=== PATIENT | female | born 1995 | race Caucasian/White ===

== ENCOUNTER 2016-11-01 19:56 | Emergency (ER) | payer SELFPAY ==
[2016-11-01] MEDS ORDERED: EMLA CREAM 5GM (LIDOCAINE/PRILOCAINE) As Ordered ONE (21:47)
[2016-11-01] MEDS ORDERED: LIDOCAINE 2% W/EPIN INJ 20ML **PRES FREE As Ordered ONE (22:17)
[2016-11-01] MEDS ORDERED: NORCO 5/325MG TABLET (BULK) As Ordered ONE (22:39)
--- NOTE | 2016-11-01 22:55 | EDDOCDS ---
Physician Documentation [facility] Name: Sruthi Goodwin Age: 21 yrs Sex: Female : 1995 Arrival Date: 11/01/2016 Time: 19:56 Bed I9 / Private [facility] Disposition: 11/01 22:41 Critical Care: Critical care not applicable. le Disposition: 11/01/16 22:40 Discharged to Home/Self Care. Impression: Contusion of right foot, Laceration without foreign body, right foot - dorsum. - Condition is Stable. - Discharge Instructions: Foot Contusion, Crutch Use, Laceration Care, Adult. - Medication Reconciliation, Work Release Form - 5 day, Local Pharmacy Hours, [place] form. - [facility]; When: Tomorrow; Reason: Recheck today's complaints, Continuance of care. - Problem is new. - Symptoms have improved. - Notes: Return to the ED for any further concerns Historical: - Allergies: no known allergies; - Home Meds: 1. none - PMHx: none; - PSHx: none; - Social history: Smoking status: Patient states was never smoker of tobacco. No barriers to communication noted, The patient speaks fluent Maltese. - Family history: Not pertinent. - : The pt / caregiver states he / she is not on anticoagulants. Home medication list is obtained from the patient. - Exposure Risk Screening:: None identified. 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 (152.40 cm) (R); 22:50 BP 104 / 63; Pulse 82; Resp 18; Temp 99.6; Pulse Ox 96% ; Pain 0/10; cjh 19:58 Body Mass Index 23.24 (53.98 kg, 152.40 cm) dd6 MDM: 21:15 LMX 4 Plus Kit 4 % 1 applic Topical once ordered. le 21:15 Foot, Complete Ordered. EDMS 22:15 Lidocaine-Epinephrine 2 %-1:100,000 10 ml Infiltration once; to bedside ordered. le 22:35 HYDROcodone-acetaminophen 4 pack- 5 mg-325 mg 1 packets PO Per package directions; le Dispense with patient. 1 po q4h prn for pain ordered. 22:35 Crutches ordered. le Administered Medications: 22:05 Drug: LMX 4 Plus Kit 4 % 1 applic {Note: medication applied per orders to right foot.} [facility] Route: Topical; Site: right thigh; 22:32 Drug: Lidocaine-Epinephrine 2 %-1:100,000 10 ml {Note: obtained for provider to [facility] administer.} Route: Infiltration; 22:44 Drug: HYDROcodone-acetaminophen 4 pack- 1 packets [hydrocodone 5 mg-acetaminophen 325 cjh mg tablet (1 tabs)] {Co-Signature: rs3 (Mireya Mabry RN).} Route: PO; Signatures: Dispatcher [employer] EDNena Donahue, BRIDAL SALES CONSULTANT Ceci Benjamin RN RN [facility] Lilly Mi RN RN ms18 Mireya Mabry RN rs3 MTDD
--- NOTE | 2016-11-01 22:56 | EDDOCDS ---
Nurse's Notes [facility] Name: Sruthi Goodwin Age: 21 yrs Sex: Female : 1995 Arrival Date: 11/01/2016 Time: 19:56 Bed I9 / [facility] Diagnosis: Contusion of right foot;Laceration without foreign body, right foot-dorsum Presentation: 11/01 20:12 Presenting complaint: Patient states: that she dropped a 35 lb weight on her foot ms18 tonight. Adult Sepsis Screening: The patient does not have new or worsening altered mentation. Patient's respiratory rate is less than 22. Systolic blood pressure is greater than 100. Patient has a qSOFA score of 0- Negative Sepsis Screen. Suicide/Homicide risk assessment- the patient denies having any suicidal and/or homicidal ideations and does not present with any other emotional, behavioral or mental health complaints. 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 Transition of care: patient was not received from another setting of care. 20:12 Acuity: POOL Level 4 ms18 20:12 Method Of Arrival: Walkin/Carried/Asstd ms18 Triage Assessment: 20:13 General: Appears in no apparent distress, comfortable, well nourished, well groomed, ms18 Behavior is appropriate for age, cooperative. Pain: Location: right foot Pain currently is 8 out of 10 on a pain scale. HIV screening NA for this visit Offered previously. Neurological: Level of Consciousness is awake, alert, obeys commands, Oriented to person, place, time. Respiratory: No deficits noted. Derm: Skin is pink, warm & dry. Derm: Skin has skin tears on to the top of pt's R foot. Bleeding controlled. Musculoskeletal: Range of motion pt states that she can't wigger her R great toe at this time. 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 none - PMHx: none; - PSHx: none; - Social history: Smoking status: Patient states was never smoker of tobacco. No barriers to communication noted, The patient speaks fluent Tajik. - Family history: Not pertinent. - : The pt / caregiver states he / she is not on anticoagulants. Home medication list is obtained from the patient. - Exposure Risk Screening:: None identified. Screenin:07 Screening information is obtained from the patient. Fall risk: No risks identified. [facility] Assistance ADL's: requires no assistance with activities of daily living. Abuse/DV Screen: The patient / caregiver reports he/she is: not in a situation that causes fear, pain or injury. Nutritional screening: No deficits noted. Advance Directives: There is no active DNR order. home support is adequate. Assessment: 22:07 General: Appears in no apparent distress, uncomfortable, Behavior is appropriate for [facility] age, cooperative. Pain: Location: right foot Pain currently is 10 out of 10 on a pain scale. Respiratory: Airway is patent Respiratory effort is even, unlabored, Respiratory pattern is regular, symmetrical. Musculoskeletal: Range of motion limited in right ankle and right foot. 22:11 General: returned from Xray, awaiting results. [facility] 22:50 General: reviewed discharge instructions with patient, encouraged and answered [facility] questions, patient declines offer of further assistance, denies additional needs. Crutch training, fitting, and return demonstration completed. Vital Signs: 19:58 BP 120 / 66; Pulse 67; Resp 18 S; Temp 96.7(O); Pulse Ox 100% on R/A; Weight 53.98 kg dd6 (R); Height 60 in. (152.40 cm) (R); 22:50 BP 104 / 63; Pulse 82; Resp 18; Temp 99.6; Pulse Ox 96% ; Pain 0/10; [facility] 19:58 Body Mass Index 23.24 (53.98 kg, 152.40 cm) dd6 Vitals: 19:58 Log In Time: November 01, 2016 at 19:56. dd6 ED Course: 19:57 Patient visited by Donald Donohue, LEROY. dd6 19:57 [facility], Patricia Siegel is Private Physician. dd6 19:57 Patient moved to Waiting dd6 19:59 Patient moved to Pre RCE dd6 20:13 Triage Initiated ms18 21:04 [facility] L[facility] F[facility] le 21:04 Patient moved to I9 / jmb 21:08 Patient visited by Nena López FNP. le 21:08 Patient visited by Rene, Nena, SOCK LINING EXAMINER. le 21:53 Patient moved to Radiology asha 22:07 The patient / caregiver is instructed regarding the plan of care and ED course. [facility] 22:07 No IV's were initiated during this patient's visit. No procedures done that require [facility] assistance. 22:11 Patient moved to I asha 22:23 Patient visited by Mireya Mabry RN. rs3 22:39 [facility], Patricia Siegel is Referral Physician. le Administered Medications: 22:05 Drug: LMX 4 Plus Kit 4 % 1 applic {Note: medication applied per orders to right foot.} [facility] Route: Topical; Site: right thigh; 22:32 Drug: Lidocaine-Epinephrine 2 %-1:100,000 10 ml {Note: obtained for provider to [facility] administer.} Route: Infiltration; 22:44 Drug: HYDROcodone-acetaminophen 4 pack- 1 packets [hydrocodone 5 mg-acetaminophen 325 cjh mg tablet (1 tabs)] {Co-Signature: rs3 (Mireya Mabry RN).} Route: PO; Order Results: There are currently no results for this order. Outcome: 22:40 Discharge ordered by Provider. le 22:50 Discharge Assessment: Patient awake, alert and oriented x 3. No cognitive and/or [facility] functional deficits noted. Patient verbalized understanding of disposition instructions. patient administered narcotics - yes. Pt provided with safe discharge. The following High Risk Discharge criteria are identified: None. Discharged to home via wheelchair, with crutches, with significant other. Condition: good Condition: stable Condition: improved. Discharge instructions given to patient, Instructed on discharge instructions, follow up and referral plans. medication usage, no driving heavy equipment, wound care, Rest, Ice, Compression and Elevation. no drinking with medication, Demonstrated understanding of instructions, medications, Prescriptions given X 1, Work note provided to patient. No special radiology studies were completed. Property :Personal belongings accompany Pt. 22:54 Patient left the ED. [facility] Signatures: Wilfredo Carrillo Lisa, SOCK LINING EXAMINER SOCK LINING EXAMINER Donald Duque, WORKFORCE MANAGER WORKFORCE MANAGER dd6 Mireya Mabry RN RN rs3 Ceci Grey RN RN [facility] Quintin Velasco RN RN jmb Smith, Mallory, RN RN ms18 Mireya Mabry RN rs3 [facility]
--- NOTE | 2016-11-02 01:08 | REP ---
Clinical: Trauma with pain directed to the first metatarsal . Technique: AP, lateral, bilateral oblique views right foot . Findings: The osseous structures and joint spaces are intact and normal. There is no evidence for acute fracture or dislocation. Surrounding soft tissues are unremarkable. No subcutaneous emphysema or radiodense foreign body. Impression: Normal examination. No acute fracture or dislocation. Signed by Ceferino Staley MD 11/02/2016 01:00 A
--- NOTE | 2016-11-03 23:56 | EDDOCDS ---
Nurse's Notes [facility] Name: Sruthi Goodwin Age: 21 yrs Sex: Female : 1995 Arrival Date: 11/01/2016 Time: 19:56 Bed I9 / [facility] Diagnosis: Contusion of right foot;Laceration without foreign body, right foot-dorsum Presentation: 11/01 20:12 Presenting complaint: Patient states: that she dropped a 35 lb weight on her foot ms18 tonight. Adult Sepsis Screening: The patient does not have new or worsening altered mentation. Patient's respiratory rate is less than 22. Systolic blood pressure is greater than 100. Patient has a qSOFA score of 0- Negative Sepsis Screen. Suicide/Homicide risk assessment- the patient denies having any suicidal and/or homicidal ideations and does not present with any other emotional, behavioral or mental health complaints. 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 Transition of care: patient was not received from another setting of care. 20:12 Acuity: POOL Level 4 ms18 20:12 Method Of Arrival: Walkin/Carried/Asstd ms18 Triage Assessment: 20:13 General: Appears in no apparent distress, comfortable, well nourished, well groomed, ms18 Behavior is appropriate for age, cooperative. Pain: Location: right foot Pain currently is 8 out of 10 on a pain scale. HIV screening NA for this visit Offered previously. Neurological: Level of Consciousness is awake, alert, obeys commands, Oriented to person, place, time. Respiratory: No deficits noted. Derm: Skin is pink, warm & dry. Derm: Skin has skin tears on to the top of pt's R foot. Bleeding controlled. Musculoskeletal: Range of motion pt states that she can't wigger her R great toe at this time. 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 none - PMHx: none; - PSHx: none; - Social history: Smoking status: Patient states was never smoker of tobacco. No barriers to communication noted, The patient speaks fluent Bhutanese. - Family history: Not pertinent. - : The pt / caregiver states he / she is not on anticoagulants. Home medication list is obtained from the patient. - Exposure Risk Screening:: None identified. Screenin:07 Screening information is obtained from the patient. Fall risk: No risks identified. [facility] Assistance ADL's: requires no assistance with activities of daily living. Abuse/DV Screen: The patient / caregiver reports he/she is: not in a situation that causes fear, pain or injury. Nutritional screening: No deficits noted. Advance Directives: There is no active DNR order. home support is adequate. Assessment: 22:07 General: Appears in no apparent distress, uncomfortable, Behavior is appropriate for [facility] age, cooperative. Pain: Location: right foot Pain currently is 10 out of 10 on a pain scale. Respiratory: Airway is patent Respiratory effort is even, unlabored, Respiratory pattern is regular, symmetrical. Musculoskeletal: Range of motion limited in right ankle and right foot. 22:11 General: returned from Xray, awaiting results. [facility] 22:50 General: reviewed discharge instructions with patient, encouraged and answered [facility] questions, patient declines offer of further assistance, denies additional needs. Crutch training, fitting, and return demonstration completed. Vital Signs: 19:58 BP 120 / 66; Pulse 67; Resp 18 S; Temp 96.7(O); Pulse Ox 100% on R/A; Weight 53.98 kg dd6 (R); Height 60 in. (152.40 cm) (R); 22:50 BP 104 / 63; Pulse 82; Resp 18; Temp 99.6; Pulse Ox 96% ; Pain 0/10; [facility] 19:58 Body Mass Index 23.24 (53.98 kg, 152.40 cm) dd6 Vitals: 19:58 Log In Time: November 01, 2016 at 19:56. dd6 ED Course: 19:57 Patient visited by Donald Donohue, LEROY. dd6 19:57 [facility], [facility] Siegel is Private Physician. dd6 19:57 Patient moved to Waiting dd6 19:59 Patient moved to Pre RCE dd6 20:13 Triage Initiated ms18 21:04 Nena López FNP is [facility] le 21:04 Patient moved to I9 / jmb 21:08 Patient visited by Nena López FNP. le 21:08 Patient visited by Rene, Nena, POWER LINEMAN TECHNICIAN. le 21:53 Patient moved to Radiology asha 22:07 The patient / caregiver is instructed regarding the plan of care and ED course. [facility] 22:07 No IV's were initiated during this patient's visit. No procedures done that require [facility] assistance. 22:11 Patient moved to I asha 22:23 Patient visited by Mireya Mabry,MIKEY. rs3 22:39 [facility], Patricia Siegel is Referral Physician. le 11/02 01:43 Foot, Complete Returned. EDMS 11:54 T-Sheet-- Draft Copy was scanned into [employer] and attached to record. gb Administered Medications: 11/01 22:05 Drug: LMX 4 Plus Kit 4 % 1 applic {Note: medication applied per orders to right foot.} [facility] Route: Topical; Site: right thigh; 22:32 Drug: Lidocaine-Epinephrine 2 %-1:100,000 10 ml {Note: obtained for provider to [facility] administer.} Route: Infiltration; 22:44 Drug: HYDROcodone-acetaminophen 4 pack- 1 packets [hydrocodone 5 mg-acetaminophen 325 cjh mg tablet (1 tabs)] {Co-Signature: rs3 (Mireya Mabry RN).} Route: PO; Order Results: Radiology Order: Foot, Complete Test: Foot, Complete REASON FOR EXAMINATION: 1st metatarsal;Trauma; Clinical: Trauma with pain directed to the first metatarsal .; ; Technique: AP, lateral, bilateral oblique views right foot .; ; Findings: The osseous structures and joint spaces are intact and normal. There; is no evidence for acute fracture or dislocation. Surrounding soft tissues are; unremarkable. No subcutaneous emphysema or radiodense foreign body.; ; Impression:; Normal examination. No acute fracture or dislocation.; ; ; Signed by; Ceferino Staley MD 11/02/2016 01:00 A; Outcome: 22:40 Discharge ordered by Provider. le 22:50 Discharge Assessment: Patient awake, alert and oriented x 3. No cognitive and/or [facility] functional deficits noted. Patient verbalized understanding of disposition instructions. patient administered narcotics - yes. Pt provided with safe discharge. The following High Risk Discharge criteria are identified: None. Discharged to home via wheelchair, with crutches, with significant other. Condition: good Condition: stable Condition: improved. Discharge instructions given to patient, Instructed on discharge instructions, follow up and referral plans. medication usage, no driving heavy equipment, wound care, Rest, Ice, Compression and Elevation. no drinking with medication, Demonstrated understanding of instructions, medications, Prescriptions given X 1, Work note provided to patient. No special radiology studies were completed. Property :Personal belongings accompany Pt. 22:54 Patient left the ED. [facility] Signatures: Dispatcher [employer] EDMS Wilfredo Carrillo Gloria, Reg Reg gb Nena López, POWER LINEMAN TECHNICIAN POWER LINEMAN TECHNICIAN Donald Duque, PHYSICS INSTRUCTOR PHYSICS INSTRUCTOR dd6 Mireya Mabry RN RN rs3 Ceci Grey RN RN [facility] Quintin Velasco RN RN jmb Smith, Mallory, RN RN ms18 Mireya Mabry RN rs3 Chart Complete MTDD
--- NOTE | 2016-11-03 23:56 | EDDOCDS ---
Physician Documentation [facility] Name: Sruthi Goodwin Age: 21 yrs Sex: Female : 1995 Arrival Date: 11/01/2016 Time: 19:56 Bed I9 / Private [facility] Disposition: 11/01 22:41 Critical Care: Critical care not applicable. le Disposition: 11/01/16 22:40 Discharged to Home/Self Care. Impression: Contusion of right foot, Laceration without foreign body, right foot - dorsum. - Condition is Stable. - Discharge Instructions: Foot Contusion, Crutch Use, Laceration Care, Adult. - Medication Reconciliation, Work Release Form - 5 day, Local Pharmacy Hours, [place] form. - [facility]; When: Tomorrow; Reason: Recheck today's complaints, Continuance of care. - Problem is new. - Symptoms have improved. - Notes: Return to the ED for any further concerns Historical: - Allergies: no known allergies; - Home Meds: 1. none - PMHx: none; - PSHx: none; - Social history: Smoking status: Patient states was never smoker of tobacco. No barriers to communication noted, The patient speaks fluent Zambian. - Family history: Not pertinent. - : The pt / caregiver states he / she is not on anticoagulants. Home medication list is obtained from the patient. - Exposure Risk Screening:: None identified. 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 (152.40 cm) (R); 22:50 BP 104 / 63; Pulse 82; Resp 18; Temp 99.6; Pulse Ox 96% ; Pain 0/10; cjh 19:58 Body Mass Index 23.24 (53.98 kg, 152.40 cm) dd6 MDM: 21:15 LMX 4 Plus Kit 4 % 1 applic Topical once ordered. le 21:15 Foot, Complete Ordered. EDMS 22:15 Lidocaine-Epinephrine 2 %-1:100,000 10 ml Infiltration once; to bedside ordered. le 22:35 HYDROcodone-acetaminophen 4 pack- 5 mg-325 mg 1 packets PO Per package directions; le Dispense with patient. 1 po q4h prn for pain ordered. 22:35 Crutches ordered. le 11/02 11:54 T-Sheet-- Draft Copy was scanned into [employer] and attached to record. Administered Medications: 11/01 22:05 Drug: LMX 4 Plus Kit 4 % 1 applic {Note: medication applied per orders to right foot.} [facility] Route: Topical; Site: right thigh; 22:32 Drug: Lidocaine-Epinephrine 2 %-1:100,000 10 ml {Note: obtained for provider to [facility] administer.} Route: Infiltration; 22:44 Drug: HYDROcodone-acetaminophen 4 pack- 1 packets [hydrocodone 5 mg-acetaminophen 325 cjh mg tablet (1 tabs)] {Co-Signature: rs3 (Mireya Mabry RN).} Route: PO; Signatures: Dispatcher [employer] EDMS Tila Gamez, Reg Reg gb Nena López, GAMING COMMISSIONER GAMING COMMISSIONER Ceci FernandesRN RN [facility] Lilly Mi RN RN ms18 Mireya Mabry RN rs3 The chart was reviewed and I authenticate all verbal orders and agree with the evaluation and treatment provided.Attachments: 11/02 11:54 T-Sheet-- Draft Copy Chart Complete MTDD
--- NOTE | 2016-11-03 23:56 | EDDOCDS ---
Physician Documentation [facility] Name: Sruthi Goodwin Age: 21 yrs Sex: Female : 1995 Arrival Date: 11/01/2016 Time: 19:56 Bed I9 / Private [facility] Disposition: 11/01 22:41 Critical Care: Critical care not applicable. le Disposition: 11/01/16 22:40 Discharged to Home/Self Care. Impression: Contusion of right foot, Laceration without foreign body, right foot - dorsum. - Condition is Stable. - Discharge Instructions: Foot Contusion, Crutch Use, Laceration Care, Adult. - Medication Reconciliation, Work Release Form - 5 day, Local Pharmacy Hours, [place] form. - [facility]; When: Tomorrow; Reason: Recheck today's complaints, Continuance of care. - Problem is new. - Symptoms have improved. - Notes: Return to the ED for any further concerns Historical: - Allergies: no known allergies; - Home Meds: 1. none - PMHx: none; - PSHx: none; - Social history: Smoking status: Patient states was never smoker of tobacco. No barriers to communication noted, The patient speaks fluent Omani. - Family history: Not pertinent. - : The pt / caregiver states he / she is not on anticoagulants. Home medication list is obtained from the patient. - Exposure Risk Screening:: None identified. 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 (152.40 cm) (R); 22:50 BP 104 / 63; Pulse 82; Resp 18; Temp 99.6; Pulse Ox 96% ; Pain 0/10; cjh 19:58 Body Mass Index 23.24 (53.98 kg, 152.40 cm) dd6 MDM: 21:15 LMX 4 Plus Kit 4 % 1 applic Topical once ordered. le 21:15 Foot, Complete Ordered. EDMS 22:15 Lidocaine-Epinephrine 2 %-1:100,000 10 ml Infiltration once; to bedside ordered. le 22:35 HYDROcodone-acetaminophen 4 pack- 5 mg-325 mg 1 packets PO Per package directions; le Dispense with patient. 1 po q4h prn for pain ordered. 22:35 Crutches ordered. le 11/02 11:54 T-Sheet-- Draft Copy was scanned into [employer] and attached to record. Administered Medications: 11/01 22:05 Drug: LMX 4 Plus Kit 4 % 1 applic {Note: medication applied per orders to right foot.} [facility] Route: Topical; Site: right thigh; 22:32 Drug: Lidocaine-Epinephrine 2 %-1:100,000 10 ml {Note: obtained for provider to [facility] administer.} Route: Infiltration; 22:44 Drug: HYDROcodone-acetaminophen 4 pack- 1 packets [hydrocodone 5 mg-acetaminophen 325 cjh mg tablet (1 tabs)] {Co-Signature: rs3 (Mireya Mabry RN).} Route: PO; Signatures: Dispatcher [employer] EDMS Tila Gamez, Reg Reg gb Nena López, TOP COLLAR MAKER TOP COLLAR MAKER Ceci FernandesRN RN [facility] Lilly Mi RN RN ms18 Mireya Mabry RN rs3 The chart was reviewed and I authenticate all verbal orders and agree with the evaluation and treatment provided.Attachments: 11/02 11:54 T-Sheet-- Draft Copy Chart Complete MTDD
== END 2016-11-01 22:54 | disposition home or self-care (01) ==
LOC: M ED 19:56
DX: S91.311A Laceration without foreign body, right foot, initial encounter (principal); S90.31XA Contusion of right foot, initial encounter; W22.8XXA Striking against or struck by other objects, initial encounter; Y92.89 Other specified places as the place of occurrence of the external cause; Y93.89 Activity, other specified; Y99.8 Other external cause status

== ENCOUNTER 2017-04-07 18:38 | Inpatient (IN) | payer OTHER ==
[~2017-04-07] VITALS: Ht 152.4 cm; Wt 53.5 kg
[2017-04-07 20:05] LABS: MEAN CORPUSCULAR HEMOGLOBIN 29.5 pg (27.0-33.0); MEAN CORPUSCULAR HGB CONC 33.5 g/dl (32.0-36.5); MEAN CORPUSCULAR VOLUME 88.2 fl (80.0-96.0); RED CELL DISTRIBUTION WIDTH 12.6 % (11.5-14.5); WHITE BLOOD COUNT 6.4 K/mm3 (4.0-10.0)
[2017-04-07 20:21] LABS: CONTROL LINE HCG INT CTR LINE PRESENT
[2017-04-07 20:37] LABS: ALBUMIN 4.1 GM/DL (3.2-5.2); ALBUMIN/GLOBULIN RATIO 1.21 (1.00-1.93); ALKALINE PHOSPHATASE 60 U/L (45-117); ALT/SGPT 15 U/L (12-78); ANION GAP 8 MEQ/L (8-16); AST/SGOT 7 U/L (15-37); BILIRUBIN,DIRECT < 0.1 MG/DL (0.0-0.2); BILIRUBIN,TOTAL 0.2 MG/DL (0.2-1.0); BLOOD UREA NITROGEN 6 MG/DL (7-18); CALCIUM LEVEL 8.8 MG/DL (8.5-10.1); CARBON DIOXIDE LEVEL 26 MEQ/L (21-32); CHLORIDE LEVEL 110 MEQ/L (98-107); CREATININE FOR GFR 0.61 MG/DL (0.55-1.02); GLOMERULAR FILTRATION RATE > 60.0 (>60); GLUCOSE, FASTING 60 MG/DL (70-105); POTASSIUM SERUM 3.6 MEQ/L (3.5-5.1); SODIUM LEVEL 144 MEQ/L (136-145); TOTAL PROTEIN 7.5 GM/DL (6.4-8.2)
[2017-04-07 20:43] LABS: METHADONE URINE NEGATIVE (NEGATIVE)
[2017-04-07] MEDS ORDERED: LORazepam 1 MG TAB PO PRN (22:15)
[2017-04-07] MEDS ORDERED: MOM 30ML SUSPENSION UDC PO PRN (22:15)
[2017-04-07] MEDS ORDERED: MAALOX 30 ML SUSP *UDC PO PRN (22:15)
[2017-04-07 23:30] VITALS: BP 128/79
[2017-04-08] MEDS: traZODone 50 MG TAB PO PRN ×2 (00:29→21:40)
[2017-04-08 06:00] VITALS: BP 119/56
[2017-04-08] MEDS: SERTRALINE HCL 50 MG TAB PO SCH ×2 (08:55→13:31)
--- NOTE | 2017-04-08 12:22 | MHHPEPDOC ---
[facility] History & Physical History and Physical DATE OF ADMISSION: Apr 07, 2017 at 22:12 LEGAL STATUS AT ADMISSION: 9.39 CHIEF COMPLAINT: Patient was brought to the ER because her found out she was going to overdose with sleep medications, mixing them with a judi. HISTORY OF THE PRESENT ILLNESS: Patient is a 22-year-old female, who has been stressed out because she has been having marital problems for about a month and this past Tuesday she discovered her was having an affair with someone she knows, whom she considered a friend and is in the as well. Her felt sorry for his actions, came back home and was OK with her for 2 days more or less, then he started getting mean. PSYCHIATRIC REVIEW OF SYSTEMS: Affective: Tearful, sad, helpless, hopeless Anxiety: High anxiety levels. Trauma: Denies trauma history. Psychosis: Denies. Personally: Needs further assessment. PAST PSYCHIATRIC HISTORY: Prior Psychiatric Disorder: Denies Outpatient Treatment: Has had a first appointment at the [facility] [place]. Suicidal/Self injurious: She denies suicide ideations but her and her peers were concerned about her being suicidal Psychotropic Medication History: Denies ALLERGIES: Please see below. FAMILY PSYCHIATRIC HISTORY: Denies SOCIAL HISTORY: Early Relations/development: Her mother is her best friend, she describes her childhood as a good childhood. Sibling order: Oldest sister and three younger brothers. Brothers are half brothers from maternal side.. Paternal relationships: Good relationship with mom. She doesn't know her father. Education: HS diploma and Associates Degree. She's studying Business Administration. 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 Martial: , with marriage problems. has been distant and unfaithful. Economic: Doesn't report financial strains. Supports: Family that lives in [place] and , with whom she's having problems.. Abuse/trauma: Denies SUBSTANCE ABUSE HISTORY: She has been drinking alcohol for the past wee, she says very little amounts, because she's sad. Denies other drugs.. PAST MEDICAL/SURGICAL HISTORY: Irrelevant VITAL SIGNS: See below. MENTAL STATUS EXAMINATION: General appearance: Patient is a 22-year old female, who is alert, cooperative, tearful with good hygiene, good eye contact and good rapport Speech: Fluid, articulate, coherent Thought processes: Intact. Thought content: Perseverates about marital conflicts and not being suicidal. Abstract reasoning and computation: Fair Description of associations: Not loose. Description of abnormal or psychotic thoughts: Not psychotic, doesn't endorse bizarre delusions, auditory or visual hallucinations.. Judgment: Poor Insight: Poor. Orientation: Oriented x 3. Recent and remote memory: Intact. Attention span and concentration: Fair. Fund of knowledge: Adquate. Mood: "I'm sad." Affect: Sad, depressed. DIAGNOSES: 1. Adjustment disorder with depressed mood 2. Anxiety disorder 3. . ASSESSMENT: Patient is very sad, tearful, because she her marriage is going through a crisis, her has been unfaithful. She denies suicidal ideation but she's very vulnerable. She received education about the mechanism of action of SSRI's and how biology and psychosocial factors contribute to depression. PROBLEM LIST: 1. Depression 2. Anxiety. 3. Ineffective Coping 4. Risk for suicide 5. Risk for self injury INITIAL TREATMENT PLAN: 1. Patient was admitted on a 2. Complete history was obtained. 3. With patients permission, family will be contacted and database will be expanded. 4. Patients medication regimen will be reviewed and changed accordingly. 5. Patient will be provided with protected environment. 6. Patient will be treated with individual, group, and milieu therapies. 7. Patient will receive supportive psych-education. 8. Discharge planning will commence immediately. 9. Outpatient follow-up treatment will be strongly recommended. 10. The initial treatment plan will focus initially on: * Depression. * Risk for suicide. * Substance abuse. ESTIMATED LENGTH OF STAY: 5-7 DAYS. TIME SPENT COUNSELING AND COORDINATING INITIAL CARE: 50 minutes. Laboratory Data [facility] Laboratory Tests 2 04/07/17 19:50: Urine Amphetamines Screen NEGATIVE, Urine Benzodiazepines Screen NEGATIVE, Urine Opiates Screen NEGATIVE, Urine Methadone Screen NEGATIVE, Urine Barbiturates Screen NEGATIVE, Urine Phencyclidine Screen NEGATIVE, Urine Cocaine Metabolite Screen NEGATIVE, Urine Cannabinoids Screen NEGATIVE 04/07/17 19:54: Anion Gap 8, Glomerular Filtration Rate > 60.0, Calcium Level 8.8, Aspartate Amino Transf (AST/SGOT) 7L, Alanine Aminotransferase (ALT/SGPT) 15, Alkaline Phosphatase 60, Total Bilirubin 0.2, Direct Bilirubin < 0.1, Total Protein 7.5, Albumin 4.1, Albumin/Globulin Ratio 1.21, Thyroid Stimulating Hormone (TSH) 0.564, Human Chorionic Gonadotropin, Qual NEGATIVE, Salicylates Level < 1.7L, Acetaminophen Level < 2.0L, Ethyl Alcohol Level 0.124H CBC/BMP Laboratory Tests 04/07/17 19:54 Red Blood Count 4.39, Mean Corpuscular Volume 88.2, Mean Corpuscular Hemoglobin 29.5, Mean Corpuscular Hemoglobin Concent 33.5, Red Cell Distribution Width 12.6 Medications No Active Prescriptions or Reported Meds Allergies Coded Allergies: No Known Allergies (Unverified , 04/07/17) JANUARY MOORE MD Apr 08, 2017 12:22
[2017-04-08] MEDS: ACETAMINOPHEN TAB 650MG DOSE (2X325MG) PO PRN ×2 (13:32→21:40)
[2017-04-08 18:20] VITALS: BP 120/60
[2017-04-09] MEDS: ACETAMINOPHEN TAB 650MG DOSE (2X325MG) PO PRN ×2 (06:22→20:43)
[2017-04-09 06:27] VITALS: BP 118/55
--- NOTE | 2017-04-09 07:31 | HPE ---
DATE OF ADMISSION: 04/07/2017 HISTORY OF THE PRESENT ILLNESS: Please refer to psychiatric history and evaluation for further details on this admission. This examination and history is intended for medical issues which may need treatment, followup, or consult on this 22-year-old female. ALLERGIES: No known allergies. PRIMARY CARE PROVIDER: [facility]. 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 They are both currently stationed at [place]. ETOH: She had not drank for 6 or 7 months and then she had a few drinks yesterday. Smokes: None. Recreational drug use: None. PAST MEDICAL HISTORY: Negative. PAST SURGICAL HISTORY: Negative. HOME MEDICATIONS: None. LABORATORY STUDIES: CBC normal. Sodium 144, potassium 3.6, chloride 110, CO2 26, anion gap 6, BUN 6, creatinine is 0.68. Urine is positive; alcohol 0.124. REVIEW OF SYSTEMS: Ten-system review was done and was unremarkable. The patient had no complaints. PHYSICAL EXAMINATION: A 22-year-old cooperative female in no acute distress. Vital signs are stable. The patient is alert and oriented times three. Pupils are equal and reactive to light. Extraocular movements intact. Cornea and sclerae clear. Conjunctivae is normal. No facial asymmetry. Pharynx: Tongue and gums pink and moist. Tongue is midline. Neck is supple without lymphadenopathy. No thyromegaly. No goiter. Carotids 2+ without bruits. Chest is clear to auscultation without wheeze or retractions. Heart is regular. Abdomen benign. Bowel sounds are positive. Genital/Rectal: Not done. Extremities show equal strength, full range of motion. No cyanosis, clubbing or edema. Peripheral pulses equal and palpable bilaterally. Skin is warm and dry. IMPRESSION AND PLAN: Psychiatric plan per psychiatry. No acute medical issues.
[2017-04-09] MEDS: SERTRALINE HCL 50 MG TAB PO SCH (09:24)
--- NOTE | 2017-04-09 16:33 | IPN ---
DATE: 04/09/2017 22-year-old female admitted to our unit with significant symptoms of anxiety after she learned that her was unfaithful. Her mood is depressed and having intermittent suicidal thoughts. It was reported that she was planning to overdose on sleep medication mixed with alcohol. SUBJECTIVE: "I am feeling better." OBJECTIVE: The patient reports some degree of tiredness this morning. She attributes that to the effect of the medication. I discussed the treatment plan and probably she is sensitive to trazodone. She slept well with 50 mg at bedtime. Otherwise, tolerated medication well. There is no evidence of psychotic symptoms. The patient is interacting with other patients and staff. MENTAL STATUS EXAMINATION: The patient is dressed in [facility]. The patient is cooperative. Has fair eye contact. Speech is slow and monotone. Mood is depressed and anxious. Affect is restricted. No delusions or hallucinations. Memory, attention, and concentration are fair. The patient is able to contract for safety while in the hospital. Insight and judgment limited. ASSESSMENT: 1. Depression. 2. Suicidal ideation. 3. High anxiety. PLAN: 1. Continue with Zoloft 50 mg by mouth in the morning. 2. Continue with trazodone 50 mg by mouth at night as needed for insomnia. 3. Continue medication management, individual and group therapy.
[2017-04-09 18:00] VITALS: BP 120/80
[2017-04-09] MEDS: traZODone 50 MG TAB PO PRN (20:43)
[2017-04-10 06:19] VITALS: BP 123/58
[2017-04-10] MEDS: SERTRALINE HCL 50 MG TAB PO SCH (08:12)
[2017-04-10] MEDS: ACETAMINOPHEN TAB 650MG DOSE (2X325MG) PO PRN ×2 (12:06→21:35)
--- NOTE | 2017-04-10 17:03 | IPN ---
DATE: 04/10/2017 A 22-year-old female admitted to our unit with significant symptoms of anxiety after she learned her was unfaithful. She was depressed and having intermittent suicidal thought. She was planning to overdose on sleeping medication mixed with alcohol. SUBJECTIVE: "I feel a lot better." OBJECTIVE: The patient reports improvement, has slept well with the help of medication. She did not report feeling of sedation or tired this morning after the bedtime medication. The patient is motivated. No psychotic symptoms. The patient is interacting with other patients and staff. MENTAL STATUS EXAMINATION: The patient is dressed in [facility]. She is cooperative. Has fair eye contact. Speech is normal in rate, volume and articulation. Mood is depressed but improved. Affect is also improved. No delusions or hallucinations. Memory, attention and concentration are fair. The patient is denying suicidal or homicidal ideations. Insight and judgment are fair. ASSESSMENT: 1. Depression. 2. Suicidal ideation. 3. Anxiety. PLAN: 1. Continue with Zoloft 50 mg by mouth every morning. 2. Continue with trazodone 50 mg by mouth at bedtime as needed for insomnia. 3. Continue medication management, individual and group therapy.
[2017-04-10 18:31] VITALS: BP 105/56
[2017-04-10] MEDS: traZODone 50 MG TAB PO PRN (21:35)
[2017-04-11 06:45] VITALS: BP 127/71
[2017-04-11] MEDS: SERTRALINE HCL 50 MG TAB PO SCH (08:14)
[2017-04-11 09:15] VITALS: BP 120/60
--- NOTE | 2017-04-11 16:49 | MHIPNPDOC ---
[facility] Progress Note Progress Note DATE OF SERVICE: 04/11/17 HINTERVAL HISTORY: Medication Side effects: Denies Behavior: Compliant with medications, compliant with group attendance, no violent or aggressive behavior Group Attendance: Good Psychiatric Symptom change: Less depressed, judgment and insight VITAL SIGNS: See below. NEW TEST RESULTS: See below CURRENT MEDICATIONS: See below. MENTAL STATUS EXAMINATION: General: Alert, cooperative, good eye contact, good hygiene, dressed in hospital clothes Speech: Normal, coherent, soft spoken Thought processes: Intact Thought content: Coherent Abstract reasoning, and computation: Fair Description of associations: Not loose Description of abnormal or psychotic thoughts: Denies auditory or visual hallucinations, denies thought delusions and denies suicidal and homicidal ideations. Judgment: Improving Insight: Improving Orientation: Oriented 3 Recent and remote memory: Fair Attention span and concentration: Fair Fund of knowledge: Fair Mood: " I feel better" Affect: Sad, mood congruent, but improved DIAGNOSES: ASSESSMENT: Patient has been attending groups and she reports that the relationship group has helped her to be less dependent on her . She reports that she has understood that she has to keep himand she should be going with her life, attending school and working. Patient has improved her judgment and insight, is less depressed and anxious. MANAGEMENT PLAN: Medications: Will continue on same medications Psychotherapy: Will continue to attend groups Social: Will continue to encourage and foster a stronger sense of self, to improve her self-esteem. Misc: None Disposition: Patient will be discharged home on Tuesday if everything goes well over April 12 hol. Patient seems almost ready to go home. TIME SPENT: 30 minutes. Vital Signs Vital Signs Date Time Temp Pulse Resp B/P (MAP) Pulse Ox O2 Delivery O2 Flow Rate FiO2 04/11/17 06:45 98.5 70 16 127/71 (89) 04/09/17 06:27 Room Air 04/07/17 23:01 98 Current Medications Current Medications Acetaminophen (Tylenol Tab) 650 mg Q6HP PRN PO HEADACHE or DISCOMFORT Last administered on 04/10/17t 21:35; Start 04/07/17 at 22:15; Stop 05/07/17 at 22:14 Al Hydrox/Mg Hydrox/Simethicone (Mylanta) 30 ml Q4HP PRN PO HEARTBURN/ INDIGESTION; Start 04/07/17 at 22:15; Stop 05/07/17 at 22:14 Home Med (Med Rec Complete!) ASDIRECTED XX ; Start 04/07/17 at 22:15; Stop at 22:15; Status DC Lorazepam (Ativan) 1 mg Q6HP PRN PO ANXIETY/AGITATION; Start 04/07/17 at 22:15 ; Stop 04/14/17 at 22:14 Magnesium Hydroxide (Milk Of Magnesia) 30 ml DAILYPRN PRN PO CONSTIPATION; Start 04/07/17 at 22:15; Stop 05/07/17 at 22:14 Sertraline HCl (Zoloft) 50 mg DAILY PO Last administered on 04/11/17 08:14; Start 04/08/17 at 09:00; Stop 05/08/17 at 08:59 Trazodone HCl (Desyrel) 50 mg QHSP PRN PO INSOMNIA Last administered on 21:35; Start 04/07/17 at 22:15; Stop 05/07/17 at 22:14 Allergies Coded Allergies: No Known Allergies (Unverified , 04/07/17) JANUARY MOORE MD Apr 11, 2017 16:49
[2017-04-11 18:04] VITALS: BP 112/55
[2017-04-11] MEDS: traZODone 50 MG TAB PO PRN (21:31)
[2017-04-12 06:34] VITALS: BP 109/53
[2017-04-12] MEDS: SERTRALINE HCL 50 MG TAB PO SCH (08:16)
[2017-04-12] MEDS: ACETAMINOPHEN TAB 650MG DOSE (2X325MG) PO PRN ×2 (11:53→21:29)
[2017-04-12 18:00] VITALS: BP 109/58
[2017-04-12] MEDS: traZODone 50 MG TAB PO PRN (21:28)
[2017-04-13 06:56] VITALS: BP 109/59
[2017-04-13] MEDS: SERTRALINE HCL 50 MG TAB PO SCH (08:52)
[2017-04-13] MEDS ORDERED: TRAZO50TA PO (09:31)
[2017-04-13] MEDS ORDERED: SERT50TA PO (09:31)
--- NOTE | 2017-04-13 17:20 | MHDSPDOC ---
[facility] Discharge Summary Discharge Summary DATE OF ADMISSION: Apr 07, 2017 at 22:12 DATE OF DISCHARGE: Apr 13, 2017 at 10:40 DISCHARGE DIAGNOSES: 1. Adjustment disorder with depressed mood 2. Alcohol use disorder REASON FOR ADMISSION: Patient was admitted on April 07 after she made suicidal statements about killing herself with sleeping pills and alcohol. Patient's notified the police and they found her buying more alcohol and sleeping pills because her had taken away the pills from her, being concerned about the possibility of her committing suicide. CONSULTANTS INVOLVED: None TREATMENT AND PROGRESS ON THE UNIT : Patient denied constantly being suicidal, reported that 1 month ago her and her started having problems and they agreed on for a little time but her went to live to one of his friends house and he started seeing another woman. She found him with this woman at his friend's house. This other woman was laying in bed when she walked in. She started drinking and her thought that she was going to overdose on sleeping pills and alcohol because she made suicidal statements. He contacted the police and they found her in a store finely poor on sleeping pills. They decided to bring her to the emergency room to be hospitalized. She wanted to be discharged on Tuesday and she finally realized this was not possible. She was refusing her medication but eventually accepted it and attended groups regularly. She particularly enjoyed her yoga class, help her to relax and said the relationship groups has helped her to gain insight into her situation. She says that she was going to focus on herself and not focus on her 's behavior, not depend on him. The following days she improved even more, was hopeful, goal directed and happy about the help she received at the inpatient mental health unit. She was hopeful to see her brothers coming in today from [place]. HOSPITAL COURSE: As above DISCHARGE ASSESSMENT: Patient was alert and oriented 3, stable, not in danger to self or others, not suicidal or homicidal, not psychotic, not delusional. MENTAL STATUS EXAMINATION ON DISCHARGE: General: Alert, cooperative, good hygiene, good eye contact, dressed in personal clothes Speech: Spontaneous, fluid Thought processes: Intact Thought content: Coherent Abstract reasoning, and computation: Good Description of associations: Good Description of abnormal or psychotic thoughts: Denies auditory or visual hallucinations, denies thought delusions and denies suicidal and homicidal ideations. Judgment: Improved Insight: Improved Orientation: Oriented 3 Recent and remote memory: Intact Attention span and concentration: Intact Fund of knowledge: Adequate Mood: " I feel very happy " Affect: Bright, happy, mood congruent, full range, appropriate. MEDICATIONS ON DISCHARGE: - Zoloft 50 mg by mouth daily for depression/anxiety - Trazodone 50 mg by mouth daily at bedtime for insomnia. PLAN/FOLLOWUP ARRANGEMENTS: Patient will follow up at the behavioral clinic at [place]. The amount of time spent in the coordination of care for this patient was approximately 30 minutes. Vital Signs/I&Os Vital Signs Date Time Temp Pulse Resp B/P (MAP) Pulse Ox O2 Delivery O2 Flow Rate FiO2 04/13/17 06:56 97.9 61 16 109/59 (76) Room Air 04/07/17 23:01 98 Medications Scheduled Sertraline Hcl (Sertraline HCl) 50 Mg Tab, 50 MG PO DAILY for MOOD, #7 Scheduled PRN Trazodone HCl (Trazodone HCl) 50 Mg Tab, 50 MG PO QHSP PRN for INSOMNIA, #7 Allergies Coded Allergies: No Known Allergies (Unverified , 04/07/17) JANUARY MOORE MD Apr 13, 2017 17:20
== END 2017-04-13 10:40 | disposition home or self-care (01) | DRG 881 ==
LOC: M ED 18:38 → M ED INP 22:12 → M PSY 23:18
PROVIDERS: ADMIT Psychiatry & Neurology Psychiatry; ATTEND Psychiatry & Neurology Psychiatry
DX: F43.21 Adjustment disorder with depressed mood (principal); F10.10 Alcohol abuse, uncomplicated

== ENCOUNTER 2017-07-12 11:47 | Emergency (ER) | payer OTHER ==
[~2017-07-12] VITALS: Ht 157.5 cm; Wt 55.5 kg
[~2017-07-12 11:47] MED LIST: SERT50TA PO; TRAZO50TA PO
[2017-07-12] MEDS ORDERED: MULTTAB20 PO (11:57)
[2017-07-12 15:39] LABS: BASO % 0.1 % (0.0-1.0); EOS # 0.1 10^3/uL (0.0-0.50); EOS % 1.3 % (0.0-3.0); IMMATURE GRANULOCYTE % 0.2 % (0-0); LYMPH # 1.1 10^3/uL (1.5-6.5); LYMPH % 12.2 % (24.0-44.0); MEAN CORPUSCULAR HEMOGLOBIN 29.2 pg (27.0-33.0); MEAN CORPUSCULAR HGB CONC 33.6 g/dl (32.0-36.5); MEAN CORPUSCULAR VOLUME 86.8 fl (80.0-96.0); MONO # 0.7 10^3/uL (0.0-0.8); MONO % 7.4 % (0.0-5.0); NEUTROPHILS % 78.8 % (36.0-66.0); PLATELET COUNT, AUTOMATED 170 10^3/uL (150-450); RED CELL DISTRIBUTION WIDTH 12.6 % (11.5-14.5); WHITE BLOOD COUNT 8.9 10^3/uL (4.0-10.0)
[2017-07-12 15:41] LABS: ADD MORPHOLOGY? NO
--- NOTE | 2017-07-12 16:19 | REP ---
FIRST TRIMESTER ULTRASOUND: Real-time sonographic evaluation of the gravid uterus is performed utilizing transabdominal technique. There is a single living intrauterine gestation with an estimated gestational age of 6 weeks based on a crown rump length of 3 mm, EDC 03/07/2018. heart rate 111 beats per minute. There is a small subchorionic hemorrhage to the right of the sac measuring 14 x 2 mm. There is a left ovarian cystic structure measuring about 2.5 cm in diameter, likely a corpus luteum. There is no evidence of ovarian torsion bilaterally, with blood flow seen in each ovary with duplex Doppler evaluation. Signed by Xander Whyte MD 07/13/2017 10:25 A
[2017-07-12 16:39] VITALS: BP 117/63
== END 2017-07-12 16:45 | disposition home or self-care (01) ==
LOC: M ED 11:47
DX: O20.8 Other hemorrhage in early pregnancy (principal); Z3A.01 Less than 8 weeks gestation of pregnancy

== ENCOUNTER 2018-02-16 20:59 | Outpatient (CLI) | payer OTHER | END 2018-02-16 22:00 | disposition home or self-care (01) | LOC: M LDO 20:59 | DX: O36.8130 Decreased fetal movements, third trimester, not applicable or unspecified (principal); Z3A.37 37 weeks gestation of pregnancy | CPT/HCPCS: 59025 ==

== ENCOUNTER 2018-02-28 14:02 | Inpatient (IN) | payer OTHER ==
[2018-02-28 15:31] LABS: HEMATOCRIT 36.4 % (36.0-47.0); HEMOGLOBIN 12.3 g/dl (12.0-15.5); MEAN CORPUSCULAR HEMOGLOBIN 28.7 pg (27.0-33.0); MEAN CORPUSCULAR HGB CONC 33.8 g/dl (32.0-36.5); PLATELET COUNT, AUTOMATED 100 10^3/uL (150-450); RED BLOOD COUNT 4.28 10^6/uL (4.00-5.40); RED CELL DISTRIBUTION WIDTH 13.4 % (11.5-14.5); WHITE BLOOD COUNT 8.9 10^3/uL (4.0-10.0)
[2018-02-28 15:32] LABS: POSITIVE MORPH POS FLAG
[2018-02-28] MEDS: LR 1,000 ML IV ×2 (16:35→16:36)
[2018-02-28] MEDS ORDERED: LR 1,000 ML IV (16:35)
[2018-02-28] MEDS: BUTORPHANOL 2 MG/ML INJ (J0595) IV ×2 (17:07→22:30)
[2018-02-28] MEDS: PROMETHAZINE INJ 25 MG/ML VIAL (J2550) IV (17:13)
[2018-02-28 21:50] LABS: HEMATOCRIT 35.4 % (36.0-47.0); HEMOGLOBIN 11.8 g/dl (12.0-15.5); MEAN CORPUSCULAR HEMOGLOBIN 28.6 pg (27.0-33.0); MEAN CORPUSCULAR HGB CONC 33.3 g/dl (32.0-36.5); MEAN CORPUSCULAR VOLUME 85.7 fl (80.0-96.0); RED BLOOD COUNT 4.13 10^6/uL (4.00-5.40); RED CELL DISTRIBUTION WIDTH 13.4 % (11.5-14.5); WHITE BLOOD COUNT 11.6 10^3/uL (4.0-10.0)
[2018-02-28 22:06] LABS: IMMATURE PLATELET FRACTION % 24.8 % (0.0-9.6); PLATELET COUNT, AUTOMATED 89 10^3/uL (150-450)
[2018-03-01] MEDS: BUTORPHANOL 2 MG/ML INJ (J0595) IV (01:00)
[2018-03-01] MEDS: PROMETHAZINE INJ 25 MG/ML VIAL (J2550) IV (01:00)
[2018-03-01] MEDS ORDERED: OXYTOCIN 30 UNITS IN 0.9% NaCl 500ML IV BAG (J2590) As Ordered (03:11)
[2018-03-01] MEDS: OXYTOCIN DRIP 30 UNITS in APPROPRIATE DILUENT 1 EA IV (09:11)
[2018-03-01] MEDS ORDERED: OXYTOCIN DRIP 30 UNITS in APPROPRIATE DILUENT 1 EA IV (09:15)
[2018-03-01] MEDS: LR 1,000 ML IV ×2 (10:19)
[2018-03-01] MEDS: MORPHINE 4 MG/ML 1ML VIAL/SYRINGE (J2270) IV (11:07)
[2018-03-01] MEDS ORDERED: DIBUCAINE 1% OINTMENT 30GM TOP (14:00)
[2018-03-01] MEDS ORDERED: MOM 30ML SUSPENSION UDC PO (14:00)
[2018-03-01] MEDS ORDERED: METHYLERGONOVINE MALEATE 0.2 MG TAB PO ×2 (14:00)
[2018-03-01] MEDS ORDERED: ONDANSETRON 4MG/2ML VIAL (J2405) IV (14:00)
[2018-03-01] MEDS ORDERED: PROMETHAZINE 25 MG TAB PO (14:00)
[2018-03-01] MEDS ORDERED: RHOGAM 300 MCG (1500 IU) INJ (J2790) IM ×2 (14:00)
[2018-03-01] MEDS ORDERED: DOCUSATE SODIUM 100 MG CAP PO (14:00)
[2018-03-01] MEDS: LIDOCAINE 1% MDV INJ 50 ML VIAL IM (14:00)
[2018-03-01] MEDS ORDERED: MEASLES,MUMPS,RUBELLA VACCINE INJ (MMR-II) (90707) SC ×2 (14:00)
[2018-03-01] MEDS: IBUPROFEN 800 MG TAB PO (18:17)
[2018-03-01] MEDS: DOCUSATE SODIUM 100 MG CAP PO (20:16)
[2018-03-01] MEDS: ACETAMINOPHEN 500 MG TAB PO (20:16)
[2018-03-02] MEDS: IBUPROFEN 800 MG TAB PO ×2 (02:03→15:20)
[2018-03-02] MEDS: ACETAMINOPHEN 500 MG TAB PO (05:15)
[2018-03-02] MEDS: DIBUCAINE 1% OINTMENT 30GM TOP (06:50)
[2018-03-02] MEDS: PRENATAL VITAMINS CHEWABLE TABLET PO (08:50)
[2018-03-02] MEDS ORDERED: PRENATAL VITAMINS CHEWABLE TABLET PO (09:00)
[2018-03-02] MEDS: DOCUSATE SODIUM 100 MG CAP PO (22:14)
[2018-03-03] MEDS: IBUPROFEN 800 MG TAB PO (04:16)
[2018-03-03] MEDS: PRENATAL VITAMINS CHEWABLE TABLET PO (09:00)
== END 2018-03-03 12:00 | disposition home or self-care (01) | DRG 774 ==
LOC: M LDO 14:02 → M OBS 03-01 13:55 → M LDI 14:52
PROVIDERS: Obstetrics & Gynecology
PROC: 10E0XZZ Delivery of Products of Conception, External Approach (ICD-10-PCS; principal; 2018-03-01)
PROC: 0KQM0ZZ Repair Perineum Muscle, Open Approach (ICD-10-PCS; 2018-03-01)
DX: O99.12 Other diseases of the blood and blood-forming organs and certain disorders involving the immune mechanism complicating childbirth (principal); O98.52 Other viral diseases complicating childbirth; D69.3 Immune thrombocytopenic purpura; Z3A.38 38 weeks gestation of pregnancy; Z37.0 Single live birth; O70.1 Second degree perineal laceration during delivery; B00.9 Herpesviral infection, unspecified

== ENCOUNTER 2018-03-09 12:15 | Day surgery (SDC) | payer OTHER ==
[2018-03-09] MEDS: SILVER NITRATE APPLICATOR As Ordered ×2 (10:54→12:36)
[2018-03-09] MEDS: BUPIVACAINE/EPIN 0.5% 30 ML VIAL As Ordered (10:54)
[2018-03-09] MEDS: METHYLENE BLUE 0.5% (5MG/ML) 10 ML AMP (PROVAYBLUE)(Q9968 PER 1MG) As Ordered ×2 (10:54→12:36)
[2018-03-09] MEDS: BUPIVACAINE/EPIN 0.25% 30 ML VIAL As Ordered (12:35)
[2018-03-09] MEDS ORDERED: fentaNYL 100 MCG/2 ML INJECTION (J3010) As Ordered ×2 (12:51→14:16)
[2018-03-09] MEDS ORDERED: MIDAZOLAM INJ 2 MG/2 ML VIAL (J2250) As Ordered (12:51)
[2018-03-09 12:52] LABS: HEMATOCRIT 36.1 % (36.0-47.0); HEMOGLOBIN 11.7 g/dl (12.0-15.5); MEAN CORPUSCULAR HEMOGLOBIN 28.2 pg (27.0-33.0); MEAN CORPUSCULAR HGB CONC 32.4 g/dl (32.0-36.5); PLATELET COUNT, AUTOMATED 274 10^3/uL (150-450); RED BLOOD COUNT 4.15 10^6/uL (4.00-5.40); RED CELL DISTRIBUTION WIDTH 13.7 % (11.5-14.5)
[2018-03-09] MEDS ORDERED: PROPOFOL 200 MG/20 ML VIAL As Ordered ×4 (12:52→13:34)
[2018-03-09] MEDS ORDERED: LIDOCAINE 2% INJ 100 MG/5 ML SDV (FOR ANES.) As Ordered (12:54)
[2018-03-09] MEDS: ceFAZolin SOD 1 GM in D5W MINI-BAG PLUS 50 ML IV (13:07)
[2018-03-09] MEDS ORDERED: KETAMINE HCL 200 MG/20 ML VIAL As Ordered (13:25)
[2018-03-09] MEDS ORDERED: dexameTHASONE 4 MG/ML 1ML VIAL (J1100) As Ordered ×2 (13:36)
[2018-03-09] MEDS ORDERED: METOCLOPRAMIDE INJ 10MG/2ML VIAL (J2765) As Ordered (13:37)
[2018-03-09] MEDS ORDERED: ONDANSETRON 4MG/2ML VIAL (J2405) As Ordered ×2 (13:37→14:16)
[2018-03-09] MEDS ORDERED: KETOROLAC 60 MG/2 ML VIAL (J1885) As Ordered (13:37)
[2018-03-09] MEDS: LIDOCAINE 1% SDV INJ 30 ML VIAL As Ordered (13:56)
[2018-03-09] MEDS: LR 1,000 ML IV (14:08)
[2018-03-09] MEDS ORDERED: PERCOCET 5MG/325MG TAB As Ordered (14:16)
[2018-03-09] MEDS: PERCOCET 5MG/325MG TAB PO ×2 (14:24→14:30)
[2018-03-09] MEDS: fentaNYL 100 MCG/2 ML INJECTION (J3010) IV ×4 (14:24→14:46)
[2018-03-09] MEDS: ONDANSETRON 4MG/2ML VIAL (J2405) IV (14:25)
[2018-03-09] MEDS: KETOROLAC 30 MG/ML VIAL (J1885) IV (14:30)
[2018-03-09] MEDS ORDERED: ONDANSETRON 4MG/2ML VIAL (J2405) IV (14:30)
[2018-03-09] MEDS ORDERED: MORPHINE 4 MG/ML 1ML VIAL/SYRINGE (J2270) IV (14:30)
== END 2018-03-09 15:58 | disposition home or self-care (01) ==
LOC: M SDC 15:58
DX: R10.2 Pelvic and perineal pain (principal); O90.1 Disruption of perineal obstetric wound
CPT/HCPCS: 59300

== ENCOUNTER 2018-06-10 22:29 | Emergency (ER) | payer OTHER | END 2018-06-10 23:15 | disposition home or self-care (01) | LOC: M ED 22:29 | DX: H92.02 Otalgia, left ear (principal); Z79.899 Other long term (current) drug therapy | CPT/HCPCS: 99282 ==

== ENCOUNTER 2018-08-28 14:02 | Emergency (ER) | payer OTHER ==
[2018-08-28] MEDS: ONDANSETRON 4MG/2ML VIAL (J2405) IV (14:57)
[2018-08-28] MEDS: NS 1,000 ML IV (14:57)
[2018-08-28 15:05] LABS: BASO % 0.2 % (0.0-1.0); EOS % 0.2 % (0.0-3.0); HEMATOCRIT 37.2 % (36.0-47.0); HEMOGLOBIN 12.4 g/dl (12.0-15.5); IMMATURE GRANULOCYTE % 0.2 % (0-3.0); LYMPH # 0.4 10^3/uL (1.5-6.5); LYMPH % 8.1 % (24.0-44.0); MEAN CORPUSCULAR HEMOGLOBIN 28.5 pg (27.0-33.0); MEAN CORPUSCULAR HGB CONC 33.3 g/dl (32.0-36.5); MEAN CORPUSCULAR VOLUME 85.5 fl (80.0-96.0); MONO # 0.3 10^3/uL (0.0-0.8); MONO % 5.8 % (0.0-5.0); NEUTROPHILS # 4.1 10^3/uL (1.8-7.7); NEUTROPHILS % 85.5 % (36.0-66.0); PLATELET COUNT, AUTOMATED 194 10^3/uL (150-450); RED BLOOD COUNT 4.35 10^6/uL (4.00-5.40); RED CELL DISTRIBUTION WIDTH 12.7 % (11.5-14.5); WHITE BLOOD COUNT 4.8 10^3/uL (4.0-10.0)
[2018-08-28 15:34] LABS: ANION GAP 5 MEQ/L (8-16); BLOOD UREA NITROGEN 14 MG/DL (7-18); CALCIUM LEVEL 8.7 MG/DL (8.5-10.1); CARBON DIOXIDE LEVEL 28 MEQ/L (21-32); CHLORIDE LEVEL 109 MEQ/L (98-107); GLOMERULAR FILTRATION RATE > 60.0 (>60); GLUCOSE, FASTING 87 MG/DL (70-100); POTASSIUM SERUM 4.3 MEQ/L (3.5-5.1); SODIUM LEVEL 142 MEQ/L (136-145)
== END 2018-08-28 16:30 | disposition home or self-care (01) ==
LOC: M ED 14:02
DX: R11.2 Nausea with vomiting, unspecified (principal)
CPT/HCPCS: J2405